=== PATIENT | female | born 1975 | race Caucasian/White ===

== ENCOUNTER 2016-12-03 20:04 | Emergency (ER) | payer BC ==
[~2016-12-03] VITALS: Ht 167.6 cm; Wt 65.6 kg
[2016-12-03 20:11] VITALS: TEMP 36.8; Ht 167.6 cm; Wt 65.6 kg
[2016-12-03] MEDS ORDERED: MULT-506 PO (20:18)
[2016-12-03] MEDS ORDERED: OMEG10007 PO (20:18)
[2016-12-03 20:25] VITALS: O2SAT 98
[2016-12-03] MEDS ORDERED: SODIUM CHLORIDE 0.9% 1000ML 1,000 ML IV STA (20:36)
--- NOTE | 2016-12-03 21:08 | EMERGENCY ROOM VISIT NOTE ---
History First contact with patient: 20:17 Chief Complaint: RESPIRATORY PROBLEMS Stated Complaint: PALITATIONS SOB Nursing Triage Summary: Pt. reports sensation of being unable to take a deep breath that started this morning. Feeling associated with dizziness. History of Present Illness The patient is a 41 year old male who presents to the Emergency Room with complaints of feelings of her heart skipping a beat and feeling short of breath. Patient states her symptoms started shortly after she got up this morning, she felt that her heart was skipping beats or irregular and she would feel an occasional "thud" in her chest. She states she felt short of breath with this and also lightheaded. She states she took her pulse a few times and it was very slow, maybe 40 bpm. She denies any chest pain associated with her symptoms. She denies any previous history of symptoms like this, and denies any family history for heart disease, abnormal heart rhythms, or thyroid disease. Patient states she is from [place], they traveled here yesterday to visit their daughter who is in college. She denies any other recent travel, surgeries or injuries. She does not take any exogenous estrogen. She has not had any fevers or chills recently, denies cough or congestion, denies back pain , abdominal pain, nausea/vomiting, syncope, leg pain or swelling, or rash. Review of Systems A complete 10 point review of systems was reviewed with the patient with pertinent positives and negatives as per history of present illness. All else were negative. Past Medical/Surgical History No significant past medical or surgical history Family History Family history of hypertension. She denies any family history of heart disease , thyroid disease. Social History Smoking Status: Never Smoker Alcohol Use: none Drug Use: none Marital Status: Housing Status: lives with family Current/Historical Medications Scheduled Fish Oil ([place]-3), 1 CAP PO DAILY Multivitamin (Multivitamin), 1 TAB PO DAILY Allergies No known allergies Physical Exam Vital Signs Date Time Temp Pulse Resp B/P (MAP) Pulse Ox O2 Delivery O2 Flow Rate FiO2 12/03/16 22:25 74 19 109/73 98 12/03/16 21:56 59 21 108/78 99 Room Air 12/03/16 21:15 64 14 112/85 98 Room Air 12/03/16 21:13 61 18 109/72 99 Room Air 73 115/74 86 112/85 12/03/16 20:45 65 12/03/16 20:25 98 Room Air 12/03/16 20:25 98 Room Air 12/03/16 20:11 36.8 90 22 123/77 99 Room Air Physical Exam CONSTITUTIONAL: No acute distress. Well appearing and well nourished. Alert and oriented X 4 with normal affect. HEENT: Normocephalic, atraumatic. Pupils equal, round and reactive to light, EOMI. TMs normal. Pharynx normal. NECK: Supple, full active range of motion without discomfort. RESPIRATORY: Clear to auscultation bilaterally with no wheezing, crackles, rhonchi or stridor. Equal expansion bilaterally. CARDIOVASCULAR: Regular rate and rhythm, with occasional early beats on auscultation that are correlated with PVCs on the monitor. There are no murmurs , rubs or gallops. Normal peripheral perfusion. No edema. GASTROINTESTINAL: Soft, nontender, nondistended. Bowel sounds present in all quadrants. MUSCULOSKELETAL: Full range of motion of all joints without discomfort. No calf tenderness or swelling bilaterally. INTEGUMENTARY: No rash or other significant dermatologic conditions noted. NEUROLOGIC: Cranial nerves II-XII grossly intact. No focal neurologic deficits noted. Medical Decision & Procedures ER Provider Diagnostic Interpretation: TWO VIEW CHEST CLINICAL HISTORY: Palpitations. FINDINGS: PA and lateral chest radiographs are obtained. No prior studies are available for comparison at the time of dictation. The cardiomediastinal silhouette is unremarkable. The lungs and pleural spaces are clear. There is no pneumothorax. The bony thorax appears intact. IMPRESSION: No active disease in the chest. Laboratory Results 12/03/16 21:10 Red Blood Count 4.55, Mean Corpuscular Volume 91.0, Mean Corpuscular Hemoglobin 31.4, Mean Corpuscular Hemoglobin Concent 34.5, Mean Platelet Volume 10.6, Neutrophils (%) (Auto) 54.4, Lymphocytes (%) (Auto) 32.2, Monocytes (%) (Auto) 9.1, Eosinophils (%) (Auto) 3.6, Basophils (%) (Auto) 0.5, Neutrophils # (Auto) 3.59, Lymphocytes # (Auto) 2.12, Monocytes # (Auto) 0.60, Eosinophils # (Auto) 0.24, Basophils # (Auto) 0.03 12/03/16 21:10 Test 12/03/16 21:10 White Blood Count 6.59 K/uL (4.8-10.8) Red Blood Count 4.55 M/uL (4.7-6.1) Hemoglobin 14.3 g/dL (14.0-18.0) Hematocrit 41.4 % (42-52) Mean Corpuscular Volume 91.0 fL (80-100) Mean Corpuscular Hemoglobin 31.4 pg (25-34) Mean Corpuscular Hemoglobin Concent 34.5 g/dl (32-36) Platelet Count 191 K/uL (130-400) Mean Platelet Volume 10.6 fL (7.4-10.4) Neutrophils (%) (Auto) 54.4 % Lymphocytes (%) (Auto) 32.2 % Monocytes (%) (Auto) 9.1 % Eosinophils (%) (Auto) 3.6 % Basophils (%) (Auto) 0.5 % Neutrophils # (Auto) 3.59 K/uL (1.4-6.5) Lymphocytes # (Auto) 2.12 K/uL (1.2-3.4) Monocytes # (Auto) 0.60 K/uL (0.11-0.59) Eosinophils # (Auto) 0.24 K/uL (0-0.5) Basophils # (Auto) 0.03 K/uL (0-0.2) RDW Standard Deviation 40.3 fL (36.4-46.3) RDW Coefficient of Variation 12.2 % (11.5-14.5) Immature Granulocyte % (Auto) 0.2 % Immature Granulocyte # (Auto) 0.01 K/uL (0.00-0.02) D-Dimer 210 ug/L FEU (0-500) Urine Test NEG Anion Gap 5.0 mmol/L (3-11) Est Creatinine Clear Calc Drug Dose 79.8 ml/min Estimated GFR () 97.3 Estimated GFR (Non- 83.9 BUN/Creatinine Ratio 17.1 (10-20) Calcium Level 8.8 mg/dl (8.5-10.1) Magnesium Level 2.4 mg/dl (1.8-2.4) Total Bilirubin 0.2 mg/dl (0.2-1) Direct Bilirubin < 0.1 mg/dl (0-0.2) Aspartate Amino Transf (AST/SGOT) 22 U/L (15-37) Alanine Aminotransferase (ALT/SGPT) 27 U/L (12-78) Alkaline Phosphatase 72 U/L (45-117) Troponin I < 0.015 ng/ml (0-0.045) Total Protein 8.1 gm/dl (6.4-8.2) Albumin 4.3 gm/dl (3.4-5.0) Thyroid Stimulating Hormone (TSH) 1.370 uIu/ml (0.300-4.500) Medications Administered Medications (Trade) Dose Ordered Sig/Tish Route Start Time Stop Time Status Last Admin Dose Admin Sodium Chloride 1,000 ml @ 999 mls/hr Q1H1M STAT IV 12/03/16 20:36 12/03/16 21:36 DC 12/03/16 21:17 999 MLS/HR ECG Indication: palpitations, SOB/dyspnea Rate (beats per minute): 72 Rhythm: normal sinus Findings: no acute ischemic change, no ectopy Change: no significant change (compared to EKG done at urgent care earlier today at 7:31 PM) Medical Decision CC: Patient presenting with complaint of shortness of breath and palpitations Interpretation of Labs: No leukocytosis, no anemia, no significant electrolyte abnormalities, normal renal function, normal liver enzymes and lipase, negative troponin, negative d-dimer, normal thyroid level. Urine negative. Differential Diagnosis: Includes, but not limited to PVCs, irregular heartbeat, dysrhythmia, electrolyte imbalance, anemia, thyroid disease, PE, cardiac ischemia, , among others. Medication Reconciliation: I attest that I have personally reviewed the patient' s current medication list. Vital signs review: I reviewed the patient's vital signs and interpret them as follows: T: Afebrile; BP: Normotensive; HR: Within normal limits; RR: Tachypneic; Pulse Ox: Within normal limits on room air. Blood pressure screening: The patient was found to have normal blood pressure on screening and does not require follow-up for repeat blood pressure check. Summary: Patient was evaluated at bedside, history of physical exam performed. Patient is alert and in no acute distress, slightly tachypneic, but no accessory muscle use or signs of increased work of breathing. Lungs are clear. Heart sounds are normal, however she is noted to have some occasional irregular beats that correlate with PVCs on the monitor. Patient also confirms that she feels these beats when they occur. EKG reviewed at bedside, normal sinus rhythm with no acute ischemic changes. Orders were placed at bedside for labs, urine , IV fluids for hydration , chest x-ray to evaluate for shortness of breath. Patient discussed with Dr. Velazquez, who agrees with my assessment and plan. I have a low suspicion for PE, and she is PERC negative, however due to her recent travel yesterday, will check a d-dimer to fully rule this out. She has no other risk factors for PE. Orthostatic vital signs showed a positive change in heart rate with position changes, suggestive of dehydration. Labs reviewed as above, no significant abnormalities. D-dimer negative. Chest x-ray unremarkable. I suspect that patient is having symptomatic PVCs, her vitals are stable and she does not have any other concerning sequela related to her symptoms. I feel that she is safe for discharge. Patient reassessed multiple times throughout ED stay, she states she feels somewhat improved after IV fluids, and states that the irregular heartbeat are much less frequent. I updated the patient and her on all results and plan for discharge. I encouraged the patient to follow closely with her PCP, and to discuss Holter monitor if her symptoms persist. I also discussed return precautions with the patient should her symptoms worsen , she verbalized understanding. Patient was discharged home in stable condition and ambulatory. Medication Reconcilliation Current Medication List: was personally reviewed by me Blood Pressure Screening Patient's blood pressure: Normal blood pressure Impression Primary Impression: Palpitations Departure Information Dispostion Home / Self-Care Condition GOOD Referrals No Doctor, Assigned (PCP) Patient Instructions ED Palpitations, [facility], Premature Ventricular Contract About Additional Instructions You have been treated in the Emergency Department today for heart palpitations. Laboratory results and imaging studies have ruled out any emergent reasons for further evaluation or admission. Drink plenty of fluids to stay well hydrated. Limit caffeine intake, as this may make your symptoms worse. Follow-up with your Primary Care Provider in the next 1-2 days for reevaluation. If your symptoms continue, you may benefit from a Holter monitor , which can be ordered by her PCP. Return to the Emergency Department if your current symptoms worsen despite treatment course outlined above, or if you develop any of the following symptoms : Severe dizziness, passing out, chest pain, worsening shortness of breath, or any other concerns.
[2016-12-03 21:27] LABS: BASO % 0.5 %; BASO ABS # 0.03 K/uL (0-0.2); COMPLETE YES; EOS % 3.6 %; HEMATOCRIT 41.4 % (42-52); IG% 0.2 %; LYMPH % 32.2 %; LYMPH ABS # 2.12 K/uL (1.2-3.4); MEAN CORPUSCULAR HEMOGLOBIN 31.4 pg (25-34); MEAN CORPUSCULAR HGB CONC 34.5 g/dl (32-36); MEAN PLATELET VOLUME 10.6 fL (7.4-10.4); MONO % 9.1 %; NEUT % 54.4 %; PLATELET COUNT 191 K/uL (130-400); RED BLOOD COUNT 4.55 M/uL (4.7-6.1); WHITE BLOOD COUNT 6.59 K/uL (4.8-10.8)
[2016-12-03 21:44] LABS: ALT/SGPT 27 U/L (12-78); AST/SGOT 22 U/L (15-37); BLOOD UREA NITROGEN 15 mg/dl (7-18); BUN/CREATININE RATIO 17.1 (10-20); CALCIUM 8.8 mg/dl (8.5-10.1); CARBON DIOXIDE 29 mmol/L (21-32); CHLORIDE 106 mmol/L (98-107); CREATININE 0.85 mg/dl (0.60-1.20); GLUCOSE 84 mg/dl (70-99); MAGNESIUM 2.4 mg/dl (1.8-2.4); POTASSIUM 3.6 mmol/L (3.5-5.1); SODIUM 140 mmol/L (136-145)
--- NOTE | 2016-12-03 21:52 | DIAGNOSTIC IMAGING REPORT ---
TWO VIEW CHEST CLINICAL HISTORY: Palpitations. FINDINGS: PA and lateral chest radiographs are obtained. No prior studies are available for comparison at the time of dictation. The cardiomediastinal silhouette is unremarkable. The lungs and pleural spaces are clear. There is no pneumothorax. The bony thorax appears intact. IMPRESSION: No active disease in the chest. Electronically signed by: Cody Morales M.D. 12/03/2016 9:50 PM Dictated Date/Time: 12/03/2016 9:50 PM
[2016-12-03 21:54] LABS: ALKALINE PHOSPHATASE 72 U/L (45-117)
[2016-12-03 22:25] VITALS: BP 109/73; PULSE 74; O2SAT 98
== END 2016-12-03 22:25 | disposition home or self-care (01) ==
LOC: C.EDB 20:07 → EDSEX 20:07 → C.EDC 22:25
DX: R00.2 Palpitations (principal); Z82.49 Family history of ischemic heart disease and other diseases of the circulatory system